=== PATIENT | female | born 1990 | race Native Hawaiian/Other Pacific Islander ===

== ENCOUNTER 2019-10-28 18:45 | Outpatient (CLI) | payer MEDICAID ==
[2019-10-28 19:24] VITALS: BP 116/65
[2019-10-28] MEDS ORDERED: LACTATED RINGERS 1,000 ML IV ONE (19:34)
[2019-10-28 20:08] LABS: Amorphous Crystals,Urine Few; Bilirubin,Urine NEG (Negative); Blood,Urine NEG (Negative); Color,Urine Yellow (Yellow); Mucus,Urine 1+ /HPF; Protein,Urine <15 mg/dL mg/dL (Negative); Urobilinogen,Urine < 2.0 mg/dL (<2.0)
== END 2019-10-28 20:55 | disposition home or self-care (01) ==
LOC: TRG 18:45 → APU 18:46 → TRG 20:55
PROVIDERS: ATTEND Obstetrics & Gynecology
DX: O62.9 Abnormality of forces of labor, unspecified (principal); O24.813 Other pre-existing diabetes mellitus in pregnancy, third trimester; Z3A.33 33 weeks gestation of pregnancy
CPT/HCPCS: 59025; 81001; 96360; J7120

== ENCOUNTER 2019-12-10 21:58 | Observation (INO) | payer MEDICAID ==
[2019-12-11 01:11] LABS: Basophils # (Auto) 0.1 K/mm3 (0.0-0.1); Basophils % (Auto) 0.8 % (0.0-1.8); Eosinophils # (Auto) 0.1 K/mm3 (0.0-0.4); Eosinophils % (Auto) 1.3 % (0.0-4.3); Hematocrit 31.9 % (30.3-42.9); Hemoglobin 10.4 gm/dl (10.1-14.3); Lymphocytes % (Auto) 23.5 % (13.4-35.0); Mean Corpuscular HGB Conc 33 % (30-34); Mean Corpuscular Volume 76 fl (79-97); Monocytes # (Auto) 0.6 K/mm3 (0.0-0.8); Monocytes % (Auto) 6.7 % (0.0-7.3); Platelet Count 334 K/mm3 (140-440); Red Blood Count 4.19 M/mm3 (3.65-5.03); Red Cell Distribution Width 17.1 % (13.2-15.2)
[2019-12-11] MEDS: LACTATED RINGERS 1,000 ML IV SCH ×4 (03:32→23:38)
[2019-12-11] MEDS ORDERED: BUTORPHANOL 2 MG/1 ML INJ IV PRN (09:03)
[2019-12-11] MEDS ORDERED: fentaNYL 100 MCG/2 ML INJ IV PRN (09:03)
[2019-12-11] MEDS ORDERED: AMPICILLIN/NS 2 GM/100 ML 2 GM/100 ML BAG IV ONE ×3 (09:03→19:22)
[2019-12-11] MEDS ORDERED: DINOPROSTONE 10 MG VAG SUPP VG ONE (09:30)
--- NOTE | 2019-12-11 13:26 | History and Physical Report ---
History of Present Illness Date of examination: 12/11/19 Date of admission: 12/10/19 21:58 Chief complaint: Here for induction of labor. History of present illness: 29 year old came in last night for IOL due to GDM and obesity. Assumed care of patient at 10:30 AM this morning. Patient received care at [facility]-MEDICAL OFFICE REPRESENTATIVE and records are noemi ilable. LMP 03/04/19. EDC 12/09/2019 (based on LMP and confirmed by 12 week US). significant for the following: anemia (supplemented with iron), GBS positive, gestational diabetes (diet controlled until October, then started on NPH 10u at HS), history of macrosomia with her first baby (10 lb.), UTI (E.Coli, treated). labs are as follows: O+, antibody screen negative, rubella immune, HIV negative, RPR nonreactive, hepatitis B surface antigen negative, hemoglobin electrophoresis AA, gonorrhea negative, chlamydia negative, trichomonas negative, AFP negative, 1 hour sugar test 183 (3 hour OGTT: 76, 192, 175, 90), GBS positive. Past History Past Medical History: other (obesity, anemia) Past Surgical History: no surgical history MEDICAL OFFICE REPRESENTATIVE History: denies: chlamydia, gonorrhea, hepatitis B, hepatitis C, herpes, HIV, syphilis, trichomonas Family/Genetic History: diabetes Social history: lives with family, full code. denies: smoking, alcohol abuse, prescription drug abuse, IV drug use - Obstetrical History Expected Date of Delivery: 12/09/19 Actual Gestation: 40 Week(s) 2 Day(s) : 3 Para: 2 Hx # Term Pregnancies: 2 Number of Pregnancies: 0 Spontaneous Abortions: 0 Induced : 0 Number of Living Children: 2 Medications and Allergies Allergies Allergy/AdvReac Type Severity Reaction Status Date / Time No Known Allergies Allergy Unverified 10/28/19 19:34 Home Medications Medication Instructions Recorded Confirmed Last Taken Type Insulin NPH, Human [NovoLIN N] 10 unit SUB-Q HS 12/11/19 12/11/19 12/09/19 History Vitamin 1 tab PO DAILY 12/11/19 12/11/19 12/09/19 History Active Meds: Active Medications Butorphanol Tartrate (Stadol) 2 mg IV Q2H PRN PRN Reason: Labor Pain Fentanyl (Sublimaze) 100 mcg IV Q2H PRN PRN Reason: Labor Pain Lactated Ringer's (Lactated Ringers) 1,000 mls @ 125 mls/hr IV DIRECT MELANI Last Admin: 12/11/19 07:41 Dose: 125 mls/hr Documented by: Ampicillin Sodium (Ampicillin/Ns 1 Gm/50 Ml) 1 gm in 50 mls @ 100 mls/hr IV Q4HR MELANI; Protocol Review of Systems All systems: negative (occasional contraction) - Vital Signs Vital signs: Vital Signs Temp Pulse Resp BP 98.5 F 73 16 117/74 12/10/19 22:53 12/10/19 22:53 12/10/19 22:53 12/10/19 22:53 Temp Pulse Resp BP Pulse Ox 98.8 F 69 18 126/66 99 12/11/19 10:01 12/11/19 13:18 12/11/19 10:01 12/11/19 11:01 12/11/19 13:18 - Physical Exam Abdomen: Positive: normal appearance, soft. Negative: distention, tenderness, guarding, rigidity Genitourinary (Female): Positive: normal external genitalia, normal perenium. Negative: perineal/vulvar lesions (no lesions noted on careful exam with bright light) Vagina: Positive: normal moisture Uterus: Positive: enlarged. Negative: tender Anus/Rectum: Positive: normal perianal skin Extremities: Positive: normal. Negative: tenderness, edema - Obstetrical FHR: category 1 Uterine Contraction Monitor Mode: External Cervical Dilatation: 0 Cervical Effacement Percentage: 10 station: OOP (cephalic presentation confirmed by bedside ultrasound) Uterine Contraction Pattern: Absent Results Result Diagrams: 12/10/19 23:30 12/11/19 01:00 Abnormal lab results 12/10/19 12/11/19 Range/Units 23:30 12:36 MCV 76 L (79-97) fl MCH 25 L (28-32) pg RDW 17.1 H (13.2-15.2) % POC Glucose 64 L (70-105) All other labs normal. Assessment and Plan A: at 40 weeks, 2 days gestation. Gestational diabetes. Obesity. GBS positive. P: Cervidil cervical ripening, followed by induction of labor. Continuous EFM. GBS prophylaxis when in labor. Blood sugar checks every 4 hours. Discussed with patient cervidil cervical ripening and induction of labor. Patient consented to cervidil cervical ripening and induction of labor. Consulted with re: GDM. Will monitor blood sugars every 4 hours.
[2019-12-11] MEDS ORDERED: AMPICILLIN/NS 1 GM/50 ML 1 GM/50 ML BAG IV SCH (14:00)
[2019-12-12 00:03] VITALS: BP 121/67
--- NOTE | 2019-12-12 01:44 | Ultrasound Report ---
ULTRASOUND OBSTETRIC LIMITED ULTRASOUND BIOPHYSICAL PROFILE INDICATION / CLINICAL INFORMATION: DION. FWB. Clinical Gestational Age (GA): 40 weeks 3 days COMPARISON: None available. FINDINGS: BREATHING MOVEMENT = 2 GROSS BODY MOVEMENT = 2 TONE = 2 QUALITATIVE AMNIOTIC FLUID VOLUME = 2 TOTAL BIOPHYSICAL SCORE = 8/8 HEART RATE (beats per minute): 131 AMNIOTIC FLUID INDEX (cm) = 16.3 (normal = 7-24 cm) PRESENTATION: Cephalic. ADDITIONAL FINDINGS: None. IMPRESSION: Biophysical Score = 8/8 DION 16.3 cm. Signer Name: Jr Ramires MD Signed: 12/12/2019 1:39 AM Workstation Name: [id number]
--- NOTE | 2019-12-12 03:49 | Event Note ---
Date: 12/12/19 Cervidil was removed at 22:45. Cervical exam unchanged. Patient requests to go home. Category 1 heart rate tracing. BPP 8/8. Normal DION. Mild irregular contractions which patient states she does not feel. No leaking of fluid. No vaginal bleeding. Patient reports active movement. Consulted with Dr. Barrientos re: this patient. Dr. Barrientos states it is OK to send patient home and bring her back for induction of labor in several days. Advised patient she must continue to count movements daily at home and she must continue her GDM regimen at home. Warning signs and signs of labor discussed with patient in detail. Advised patient to return here to L&D on Saturday12/14/2019 for IOL. Patient's nurse and charge nurse notified.
--- NOTE | 2019-12-12 03:54 | Discharge Summary ---
Providers - Providers Date of Admission: 12/10/19 21:58 Date of discharge: 12/12/19 Attending physician: MALATHI LIM MD Primary care physician: MALATHI LIM MD Hospitalization Reason for admission: induction of labor Delivery: other (Undelivered) Pertinent studies: Labs, ultrasound. Hospital course: Stable hospital course. Condition at discharge: Good Disposition: DC-01 TO HOME OR SELFCARE - Discharge Diagnoses (1) Term Status: Acute (2) Obesity Status: Acute (3) Gestational diabetes Status: Acute Plan - Provider Discharge Summary Diet: other (ADA diet) Instructions: other (Count movements every day at home. Continue with your home regimen to manage your gestational diabetes.) Additional instructions: Return to [facility] Delivery on Saturday12/14/2019 at 4:00 PM for induction of labor. - Follow up plan
== END 2019-12-12 04:15 | disposition home or self-care (01) ==
LOC: LD 21:58 → INTOOBSV 21:58
PROVIDERS: ADMIT Obstetrics & Gynecology; ATTEND Obstetrics & Gynecology
DX: O48.0 Post-term pregnancy (principal); O24.410 Gestational diabetes mellitus in pregnancy, diet controlled; O99.213 Obesity complicating pregnancy, third trimester; E66.9 Obesity, unspecified; O99.013 Anemia complicating pregnancy, third trimester; D64.9 Anemia, unspecified; O98.813 Other maternal infectious and parasitic diseases complicating pregnancy, third trimester; B95.1 Streptococcus, group B, as the cause of diseases classified elsewhere; Z87.59 Personal history of other complications of pregnancy, childbirth and the puerperium; Z87.440 Personal history of urinary (tract) infections; Z68.41 Body mass index [BMI] 40.0-44.9, adult
CPT/HCPCS: 36415; 76815; 76819; 82947; 82962; 85025; 86592; 86850; 86900; 86901; 96365; G0378; G0379; J0290; J7120

== ENCOUNTER 2021-11-20 19:43 | Observation (INO) | payer MEDICAID ==
[2021-11-20 20:56] LABS: Hematocrit 25.6 % (30.3-42.9); Hemoglobin 7.4 gm/dl (10.1-14.3); Mean Corpuscular Volume 58 fl (79-97); Red Blood Count 4.44 M/mm3 (3.65-5.03)
[2021-11-20 20:57] LABS: Basophils % (Auto) 0.5 % (0.0-1.8); Eosinophils # (Auto) 0.3 K/mm3 (0.0-0.4); Eosinophils % (Auto) 3.8 % (0.0-4.3); Lymphocytes # (Auto) 3.2 K/mm3 (1.2-5.4); Lymphocytes % (Auto) 38.9 % (13.4-35.0); Mean Corpuscular HGB Conc 29 % (30-34); Monocytes # (Auto) 0.4 K/mm3 (0.0-0.8); Monocytes % (Auto) 5.1 % (0.0-7.3); Platelet Count 431 K/mm3 (140-440); Red Cell Distribution Width 19.6 % (13.2-15.2)
[2021-11-20 21:00] LABS: INR 0.96 (0.87-1.13)
[2021-11-20 21:01] LABS: Partial Thromboplastin Time 30.8 Sec. (24.2-36.6)
[2021-11-20 21:06] LABS: Creatine Kinase MB < 1.0 ng/mL (0.0-4.0)
--- NOTE | 2021-11-20 21:08 | Cat Scan Report ---
CT head/brain wo con INDICATION / CLINICAL INFORMATION: 31 years Female; Stroke symptoms. TECHNIQUE: Routine CT head without contrast. All CT scans at this location are performed using CT dos e reduction for ALARA by means of automated exposure control. COMPARISON: None. FINDINGS: BRAIN / INTRACRANIAL CONTENTS: The brain parenchyma appears to demonstrate appropriate attenuation. T he ventricular system is within upper limits of normal in size configuration. There is no clear CT ev idence of acute intracranial hemorrhage or significant mass effect. ORBITS: No significant abnormality of visualized orbits. SINUSES / MASTOIDS: No significant abnormality in the visualized paranasal sinuses or mastoid air emmanuel ls. CRANIOCERVICAL JUNCTION: No significant abnormality. ADDITIONAL FINDINGS: None. IMPRESSION: 1. There is no clear CT evidence of acute intercranial process. The study was specified as code stroke and called emergently to Dr. Bryan BENITO at 8:01 PM Central stand raymundo time. Signer Name: Wagner Ramirez MD Signed: 11/20/2021 9:04 PM Workstation Name: [id number]
[2021-11-20 21:09] LABS: Thrombin Time 15.7 Sec. (15.1-19.6)
--- NOTE | 2021-11-20 21:53 | Emergency Department Report ---
Blank Doc - Documentation Documentation: [facility] Consult Note # Demographics Consult Type: Acute Stroke Level 2 (4.5-24 hrs) Patient Location: Emergency Room First Name: Giovana Last Name: Cristian Date of : 1990 Age: 31 Gender: Female Facility: [facility] Time of Initial Page (Eastern Time): 11/20/2021, 20:57 Time of Return Call (Eastern Time): 11/20/2021, 20:58 # HPI History: 31 year old female who had headache last . Today she had facial droop on the left side. Headache is still there. No other complaints. # Scores Level of Consciousness 1a: [0] = Alert; keenly responsive LOC Questions 1b: [0] = Answers both questions correctly LOC Commands 1c: [0] = Performs both tasks correctly Best Gaze 2: [0] = Normal Visual 3: [0] = No visual loss Facial Palsy 4: [1] = Minor paralysis Motor Arm Left 5a: [0] = No drift Motor Arm Right 5b: [0] = No drift Motor Leg Left 6a: [0] = No drift Motor Leg Right 6b: [0] = No drift Limb Ataxia 7: [0] = Absent Sensory 8: [1] = Ffas-tf-eaphihwu sensory loss Best Language 9: [0] = No aphasia Dysarthria 10: [0] = Normal Extinction and Inattention 11: [0] = No abnormality NIHSS Total: 2 # PMH-FH-SH Past Medical History: denies Past Surgical History: denies Social History: non-smoker non-drinker no drugs Medications: denies # Data Head CT: no bleed per radiologist read # Assessment Impression: 31 year old with hx since presents with facial droop today. No other symptoms. Mild sensory loss on left as well. Denies any other complaints. No sickness recently. Recommend CTA head and neck and MRI Brain. Differential complex migraine but cannot rule out stroke. Also patient with hgb 7.4 onlabs, recommend work up as per ED. # Plan Thrombolytic/Intervention: Possible IA candidate Thrombolytic Exclusion: > 4.5 hours Possible IA Candidate: CTA pending Target Blood Pressure: SBP < 140 SBP > 110 DBP < 105 Labs: CBC comprehensive metabolic panel ESR hemoglobin A1c lipid panel troponin TSH urine drug screen ua Imaging: (urgency: STAT): CT Angiogram Head and CT Angiogram Neck Imaging: (urgency: routine): MRI Brain without contrast Diagnostic Test: echo with bubble study Therapy/Evaluation: PT/OT evaluation speech/swallow consultation Medication: aspirin 81 mg daily start statin with goal of LDL < 70 Other: If patient has any neurological deterioration please call me back immediately telemetry monitoring would not pursue stroke work-up if MRI is negative I have discussed my recommendations with the referring provider Disposition: admit
--- NOTE | 2021-11-20 22:33 | Cat Scan Report ---
CT angio neck INDICATION / CLINICAL INFORMATION: 31 years Female; Severe symptoms. TECHNIQUE: Thin cut axial images obtained through the head during IV bolus contrast administration. S agittal, coronal, and 3 plane MIP reconstructions performed by the technologist. NASCET type criteria used evaluate stenoses. All CT scans at this location are performed using CT dose reduction for ALAR A by means of automated exposure control. COMPARISON: None available. FINDINGS: CAROTID ARTERIES: The motion as well as the beam hardening from the patient's body habitus degrade th e image quality. The irregularity involving the proximal cervical ICAs appear to be related to the de gree of motion. Otherwise, there is no clear CT evidence of significant stenosis involving the collector of internal revenue al carotid arteries by NASCET criteria. VERTEBRAL ARTERIES: The vertebral arteries also appear to demonstrate appropriate caliber without sig nificant focal stenosis. ARCH: There is no significant focal narrowing involving origins of the arch vessels. ADDITIONAL FINDINGS: Remainder of the surrounding soft tissues are grossly normal. IMPRESSION: The motion and beam hardening degrade the image quality as described. However, there is no clear CT e vidence of significant stenosis involving the cervical carotid arteries by NASCET criteria. Signer Name: Wagner Ramirez MD Signed: 11/20/2021 10:29 PM Workstation Name: [id number]
--- NOTE | 2021-11-20 22:46 | Cat Scan Report ---
CT angio head INDICATION / CLINICAL INFORMATION: 31 years Female; Severe symptoms. TECHNIQUE: Thin cut axial images obtained through the head during IV bolus contrast administration. S agittal, coronal, and 3 plane MIP reconstructions performed by the technologist. NASCET type criteria used evaluate stenoses. Automated exposure control utilized for radiation reduction purposes. COMPARISON: None available. FINDINGS: INTERNAL CAROTID ARTERIES: The motion and beam hardening degrade the image quality. However, there is no clear evidence of significant focal stenosis involving intracranial ICAs by NASCET criteria. VERTEBROBASILAR SYSTEM: The vertebrobasilar system also appears to demonstrate appropriate caliber wi thout significant focal narrowing. CEREBRAL ARTERIES: There is no clear CT evidence of significant stenosis or large vessel occlusion in volving proximal cerebral arteries or visualized adjacent segments. There is notable enhancement along the lateral margins of the frontal lobes bilaterally, greater on t he left measure approximately 1.2 cm AP by 0.7 cm transverse by 1.1 cm sagittally and greatest dimens ions at. There are notable superficial draining cortical veins defect extending anteriorly within thi s region. Given the confluence of vascular enhancement within this region and extra-axial location fi ndings at may reflect arteriovenous fistula which is of unclear clinical significance given the histo ry of unspecified "stroke symptoms" and correlation would be needed. Dynamic imaging may be provided by catheter angiography which would assess for early venous filling within this region. There is no c lear evidence of adjacent hemorrhage on the earlier noncontrast emergent code stroke CT head. ANEURYSM: None identified. ADDITIONAL FINDINGS: Remainder of the surrounding soft tissues are grossly normal. IMPRESSION: The motion degrades image quality. However, there is no clear CTA evidence of large vessel occlusion amenable to endovascular treatment. There is a focus of enhancing vessels along the lateral left frontal region as detailed above above r elation would be needed given the emergent presentation and history of unspecified "stroke symptoms". There is no clear evidence of associated adjacent hemorrhage within this region on the earlier emerg ent noncontrast code stroke CT head at 8:46 PM. The CTA head was specified as stat and dictated emergently at 9:39 PM Central standard time. Signer Name: Wagner Ramirez MD Signed: 11/20/2021 10:42 PM Workstation Name: [id number]
--- NOTE | 2021-11-20 23:39 | Emergency Department Report ---
ED Neuro Deficit HPI - General Chief Complaint: Neuro Symptoms/Deficit Stated Complaint: LFET SIDE PAIN OF FACE Time Seen by Provider: 11/20/21 20:45 Source: EMS Mode of arrival: Ambulatory Limitations: No Limitations - History of Present Illness Initial Comments: Patient is a 31-year-old female presenting to ED with complaint of left-sided facial droop that occurred while at work today. She reports associated headache over her left temporal with left ocular pain. She denies any other focal symptoms. No past history of CVA. No history of migraines. - Related Data Home Medications: Home Medications Medication Instructions Recorded Confirmed Last Taken Vitamin 1 tab PO DAILY 12/11/19 12/15/19 12/14/19 09:00 1 Allergies/Adverse Reactions: Allergies Allergy/AdvReac Type Severity Reaction Status Date / Time No Known Allergies Allergy Unverified 10/28/19 19:34 ED Review of Systems ROS: Stated complaint: LFET SIDE PAIN OF FACE Other details as noted in HPI Comment: All other systems reviewed and negative Constitutional: denies: chills, fever Respiratory: denies: cough, shortness of breath, wheezing Cardiovascular: denies: chest pain, palpitations Gastrointestinal: denies: abdominal pain, nausea, diarrhea Musculoskeletal: denies: back pain, joint swelling, arthralgia Skin: denies: rash, lesions Neurological: headache, weakness Psychiatric: denies: anxiety, depression ED Past Medical Hx - Past Medical History Hx Hypertension: No Hx Congestive Heart Failure: No Hx Diabetes: Yes (THIS ) Hx Deep Vein Thrombosis: No Hx Renal Disease: No Hx Sickle Cell Disease: No Hx Seizures: No Hx Asthma: No Hx COPD: No Hx HIV: No - Social History Smoking Status: Never Smoker Substance Use Type: None - Medications Home Medications: Home Medications Medication Instructions Recorded Confirmed Last Taken Type Vitamin 1 tab PO DAILY 12/11/19 12/15/19 12/14/19 09:00 History 1 ED Neuro Physical Exam - General Limitations: No Limitations General appearance: alert, in no apparent distress Suspected Stroke: Yes - Head Head exam: Present: atraumatic, normocephalic - Neck Neck exam: Present: normal inspection - Respiratory Respiratory exam: Present: normal lung sounds bilaterally. Absent: respiratory distress - Cardiovascular Cardiovascular Exam: Present: regular rate, normal rhythm. Absent: systolic murmur, diastolic murmur, rubs, gallop - GI/Abdominal GI/Abdominal exam: Present: soft. Absent: distended, tenderness - Rectal Rectal exam: Present: deferred - Neurological Exam Neurological exam: Present: alert, oriented X3, other (Left facial droop) - NIHSS Assessment Interval: Baseline 1a. Level of Consciousness: alert/keenly responsive 1b. LOC Questions: answers both correctly 1c. LOC Commands: performs tasks correctly 2. Best Gaze: normal 3. Visual: no visual loss 4. Facial Palsy: partial paralysis 5b. Motor Arm Right: no drift 5a. Motor Arm Left: no drift 6a. Motor Leg Left: no drift 6b. Motor Leg Right: no drift 7. Limb Ataxia: absent 8. Sensory: normal 9. Best Language: no aphasia 10. Dysarthria: normal 11. Extinction/Inattention: no abnormality Total Score: 2 Stroke Severity: Minor Stroke - Psychiatric Psychiatric exam: Present: normal affect, normal mood - Skin Skin exam: Present: warm, dry, intact, normal color ED Course Vital Signs 11/20/21 11/20/21 11/20/21 20:34 21:33 21:34 Temperature 98.1 F 97.9 F Pulse Rate 85 75 Respiratory 16 12 12 Rate Blood Pressure 132/79 Blood Pressure 99/59 [Left] O2 Sat by Pulse 100 100 99 Oximetry 11/20/21 21:36 Temperature 97.9 F Pulse Rate 75 Respiratory 12 Rate Blood Pressure 99/59 Blood Pressure [Left] O2 Sat by Pulse 99 Oximetry - Lab Data Result diagrams: 11/20/21 20:48 Lab Results 11/20/21 11/20/21 11/20/21 Range/Units 20:48 20:48 20:48 WBC 8.1 (4.5-11.0) K/mm3 RBC 4.44 (3.65-5.03) M/mm3 Hgb 7.4 L (10.1-14.3) gm/dl Hct 25.6 L (30.3-42.9) % MCV 58 L (79-97) fl MCH 17 L (28-32) pg MCHC 29 L (30-34) % RDW 19.6 H (13.2-15.2) % Plt Count 431 (140-440) K/mm3 Lymph % (Auto) 38.9 H (13.4-35.0) % [place] % (Auto) 5.1 (0.0-7.3) % Eos % (Auto) 3.8 (0.0-4.3) % Baso % (Auto) 0.5 (0.0-1.8) % Lymph # (Auto) 3.2 (1.2-5.4) K/mm3 [place] # (Auto) 0.4 (0.0-0.8) K/mm3 Eos # (Auto) 0.3 (0.0-0.4) K/mm3 Baso # (Auto) 0.0 (0.0-0.1) K/mm3 Seg Neutrophils % 51.7 (40.0-70.0) % Seg Neutrophils # 4.2 (1.8-7.7) K/mm3 PT 13.8 (12.2-14.9) Sec. INR 0.96 (0.87-1.13) APTT 30.8 (24.2-36.6) Sec. Thrombin Time 15.7 (15.1-19.6) Sec. POC Glucose (70-105) mg/dL Total Creatine Kinase (30-135) units/L CK-MB (CK-2) (0.0-4.0) ng/mL CK-MB (CK-2) Rel Index (0-4) Troponin T (0.00-0.029) ng/mL HCG, Quant < 2 (0-4) mIU/mL 11/20/21 11/20/21 Range/Units 20:51 21:44 WBC (4.5-11.0) K/mm3 RBC (3.65-5.03) M/mm3 Hgb (10.1-14.3) gm/dl Hct (30.3-42.9) % MCV (79-97) fl MCH (28-32) pg MCHC (30-34) % RDW (13.2-15.2) % Plt Count (140-440) K/mm3 Lymph % (Auto) (13.4-35.0) % Radford % (Auto) (0.0-7.3) % Eos % (Auto) (0.0-4.3) % Baso % (Auto) (0.0-1.8) % Lymph # (Auto) (1.2-5.4) K/mm3 [place]ford # (Auto) (0.0-0.8) K/mm3 Eos # (Auto) (0.0-0.4) K/mm3 Baso # (Auto) (0.0-0.1) K/mm3 Seg Neutrophils % (40.0-70.0) % Seg Neutrophils # (1.8-7.7) K/mm3 PT (12.2-14.9) Sec. INR (0.87-1.13) APTT (24.2-36.6) Sec. Thrombin Time (15.1-19.6) Sec. POC Glucose 109 H (70-105) mg/dL Total Creatine Kinase 72 (30-135) units/L CK-MB (CK-2) < 1.0 (0.0-4.0) ng/mL CK-MB (CK-2) Rel Index 1.3 (0-4) Troponin T < 0.010 (0.00-0.029) ng/mL HCG, Quant (0-4) mIU/mL - Medical Decision Making Code stroke paged from triage. CT head unremarkable. NIH scale 2. CTA head and neck ordered at request of teleneurology without signs of acute occlusion. Will admit to hospitalist for further work-up. Critical care attestation.: If time is entered above; I have spent that time in minutes in the direct care of this critically ill patient, excluding procedure time. ED Disposition Clinical Impression: Symptoms of cerebrovascular accident (CVA), Facial droop Disposition: ADMITTED INPATIENT Is pt being admited?: Yes Condition: Stable Referrals: PRIMARY CARE, [Primary Care Provider] - 3-5 Days
[2021-11-20] MEDS ORDERED: ASPIRIN 325 MG TAB PO ONE (23:40)
[2021-11-21 00:39] LABS: Blood Urea Nitrogen 8 mg/dL (7-17); Calcium 8.6 mg/dL (8.4-10.2); Hemolysis Index 2
[2021-11-21 00:42] LABS: BUN/Creatinine Ratio 27
[2021-11-21] MEDS ORDERED: MORPHINE 2 MG/1 ML INJ IV PRN (00:58)
[2021-11-21] MEDS ORDERED: ALBUTEROL 2.5 MG/3 ML NEBU IH PRN (00:58)
[2021-11-21] MEDS ORDERED: MORPHINE 4 MG/1 ML INJ IV PRN (00:58)
[2021-11-21] MEDS ORDERED: ONDANSETRON 4 MG/2 ML INJ IV PRN (00:58)
--- NOTE | 2021-11-21 01:11 | History and Physical Report ---
History of Present Illness Date of examination: 11/21/21 Date of admission: 11/11/21 Chief complaint: Left-sided facial droop History of present illness: 31-year-old female with history of headache since last was brought to the emergency room because of left-sided facial droop that occurred while at work today. She reports associated headache over her left temporal with left ocular pain. She denies any other focal symptoms. No past history of CVA. No history of migraines. In the emergency room.CT head unremarkable. NIH scale 2. CTA head and neck ordered at request of teleneurology without signs of acute occlusion. We will admit the patient and put the patient on CVA pathway Past History Past Medical History: diabetes Past Surgical History: No surgical history Social history: no significant social history Family history: no significant family history Medications and Allergies Allergies Allergy/AdvReac Type Severity Reaction Status Date / Time No Known Allergies Allergy Unverified 10/28/19 19:34 Home Medications Medication Instructions Recorded Confirmed Last Taken Type Vitamin 1 tab PO DAILY 12/11/19 12/15/19 12/14/19 09:00 History 1 Active Meds: Active Medications Acetaminophen (Acetaminophen 325 Mg Tab) 650 mg PO Q4H PRN PRN Reason: Pain MILD(1-3)/Fever >100.5/CHARLES Albuterol (Albuterol 2.5 Mg/3 Ml Nebu) 2.5 mg IH Q3HRT PRN PRN Reason: Shortness Of Breath Albuterol/Ipratropium (Ipratropium/Albuterol Sulfate 3 Ml Ampul.Neb) 1 ampul IH Q6HRT MELANI Atorvastatin Calcium (Atorvastatin 40 Mg Tab) 40 mg PO QHS MELANI Famotidine (Famotidine 20 Mg/2 Ml Inj) 20 mg IV BID MELANI Heparin Sodium (Porcine) (Heparin 5,000 Unit/1 Ml Vial) 5,000 unit SUB-Q Q12HR MELANI Dextrose/Sodium Chloride (D5ns) 1,000 mls @ 100 mls/hr IV DIRECT MELANI Labetalol HCl (Labetalol 20 Mg/4 Ml Inj) 10 mg IV Q5MIN PRN PRN Reason: to maintain SBP < 180 Morphine Sulfate (Morphine 2 Mg/1 Ml Inj) 2 mg IV Q4H PRN PRN Reason: Pain, Moderate (4-6) Morphine Sulfate (Morphine 4 Mg/1 Ml Inj) 4 mg IV Q4H PRN PRN Reason: Pain , Severe (7-10) Ondansetron HCl (Ondansetron 4 Mg/2 Ml Inj) 4 mg IV Q8H PRN PRN Reason: Nausea And Vomiting Sodium Chloride (Sodium Chloride 0.9% 10 Ml Flush Syringe) 10 ml IV BID MELANI Sodium Chloride (Sodium Chloride 0.9% 10 Ml Flush Syringe) 10 ml IV PRN PRN PRN Reason: LINE FLUSH Sodium Chloride (Sodium Chloride 0.9% 10 Ml Flush Syringe) 10 ml INJ PRN PRN PRN Reason: LINE FLUSH Review of Systems Constitutional: weakness, other (Headache, left facial droop) Exam - Constitutional Vitals: Temp Pulse Resp BP Pulse Ox 97.9 F 75 12 99/59 99 11/20/21 21:36 11/20/21 21:36 11/20/21 21:36 11/20/21 21:36 11/20/21 21:36 General appearance: Present: no acute distress, well-nourished - EENT Eyes: Present: PERRL ENT: hearing intact, clear oral mucosa - Neck Neck: Present: supple, normal ROM - Respiratory Respiratory effort: normal Respiratory: bilateral: CTA - Cardiovascular Heart Sounds: Present: S1 & S2. Absent: rub, click - Extremities Extremities: pulses symmetrical, No edema Peripheral Pulses: within normal limits - Abdominal General gastrointestinal: Present: soft, non-tender, non-distended, normal bowel sounds Female genitourinary: Present: normal - Integumentary Integumentary: Present: clear, warm, dry - Musculoskeletal Musculoskeletal: gait normal, strength equal bilaterally - Psychiatric Psychiatric: appropriate mood/affect, intact judgment & insight - Neurologic Neurologic: CNII-XII intact, moves all extremities, other (Headache, left facial droop) HEART Score - HEART Score Troponin: Troponin T < 0.010 ng/mL (0.00-0.029) 11/20/21 20:51 Results - Labs CBC & Chem 7: 11/20/21 20:48 11/20/21 23:49 Labs: Laboratory Last Values WBC 8.1 K/mm3 (4.5-11.0) 11/20/21 20:48 RBC 4.44 M/mm3 (3.65-5.03) 11/20/21 20:48 Hgb 7.4 gm/dl (10.1-14.3) L 11/20/21 20:48 Hct 25.6 % (30.3-42.9) L 11/20/21 20:48 MCV 58 fl (79-97) L 11/20/21 20:48 MCH 17 pg (28-32) L 11/20/21 20:48 MCHC 29 % (30-34) L 11/20/21 20:48 RDW 19.6 % (13.2-15.2) H 11/20/21 20:48 Plt Count 431 K/mm3 (140-440) 11/20/21 20:48 Lymph % (Auto) 38.9 % (13.4-35.0) H 11/20/21 20:48 [place] % (Auto) 5.1 % (0.0-7.3) 11/20/21 20:48 Eos % (Auto) 3.8 % (0.0-4.3) 11/20/21 20:48 Baso % (Auto) 0.5 % (0.0-1.8) 11/20/21 20:48 Lymph # (Auto) 3.2 K/mm3 (1.2-5.4) 11/20/21 20:48 [place] # (Auto) 0.4 K/mm3 (0.0-0.8) 11/20/21 20:48 Eos # (Auto) 0.3 K/mm3 (0.0-0.4) 11/20/21 20:48 Baso # (Auto) 0.0 K/mm3 (0.0-0.1) 11/20/21 20:48 Seg Neutrophils % 51.7 % (40.0-70.0) 11/20/21 20:48 Seg Neutrophils # 4.2 K/mm3 (1.8-7.7) 11/20/21 20:48 PT 13.8 Sec. (12.2-14.9) 11/20/21 20:48 INR 0.96 (0.87-1.13) 11/20/21 20:48 APTT 30.8 Sec. (24.2-36.6) 11/20/21 20:48 Thrombin Time 15.7 Sec. (15.1-19.6) 11/20/21 20:48 Sodium 138 mmol/L (137-145) 11/20/21 23:49 Potassium 3.5 mmol/L (3.6-5.0) L 11/20/21 23:49 Chloride 103.0 mmol/L (98-107) 11/20/21 23:49 Carbon Dioxide 22 mmol/L (22-30) 11/20/21 23:49 Anion Gap 17 mmol/L 11/20/21 23:49 BUN 8 mg/dL (7-17) 11/20/21 23:49 Creatinine 0.3 mg/dL (0.6-1.2) L 11/20/21 23:49 Estimated GFR > 60 ml/min 11/20/21 23:49 BUN/Creatinine Ratio 27 % 11/20/21 23:49 Glucose 97 mg/dL (65-100) 11/20/21 23:49 POC Glucose 109 mg/dL (70-105) H 11/20/21 21:44 Calcium 8.6 mg/dL (8.4-10.2) 11/20/21 23:49 Total Creatine Kinase 72 units/L (30-135) 11/20/21 20:51 CK-MB (CK-2) < 1.0 ng/mL (0.0-4.0) 11/20/21 20:51 CK-MB (CK-2) Rel Index 1.3 (0-4) 11/20/21 20:51 Troponin T < 0.010 ng/mL (0.00-0.029) 11/20/21 20:51 HCG, Quant < 2 mIU/mL (0-4) 11/20/21 20:48 - Imaging and Cardiology CT Scan - head: report reviewed Assessment and Plan VTE prophylaxis?: Chemical Plan of care discussed with patient/family: Yes - Patient Problems (1) CVA (cerebral vascular accident) Current Visit: Yes Status: Acute Plan to address problem: Admit the patient to the medical telemetry. NPO. Normal saline at the rate of 100 cc/h. Aspirin 81 mg p.o. daily. Lipitor 40 mg p.o. daily. PT OT speech evaluation. Neurology evaluation. MRI of the brain and MRA of the brain and neck with and without contrast. Echocardiogram (2) Facial droop Current Visit: Yes Status: Acute Plan to address problem: Aspirin 81 mg p.o. daily. Lipitor 40 mg p.o. daily. PT OT speech evaluation. Neurology evaluation. MRI of the brain and MRA of the brain and neck with and without contrast. Echocardiogram (3) Obesity Current Visit: No Status: Acute Plan to address problem: We counseled the patient regarding weight reduction. Outpatient follow-up with bariatric surgery. (4) DVT prophylaxis Current Visit: Yes Status: Acute Plan to address problem: Heparin 5000 units subcu every 12 hours for DVT prophylaxis. Pepcid 20 mg IV every 12 hours for GI prophylaxis. Patient is a full code
[2021-11-21] MEDS: IPRATROPIUM/ALBUTEROL SULFATE 3 ML AMPUL.NEB IH SCH ×2 (03:17→09:05)
[2021-11-21 04:31] LABS: Bilirubin,Urine NEG (Negative); Blood,Urine MOD (Negative); Color,Urine Yellow (Yellow); Protein,Urine <15 mg/dL mg/dL (Negative); Urobilinogen,Urine < 2.0 mg/dL (<2.0)
[2021-11-21 04:38] LABS: Mucus,Urine 3+ /HPF
[2021-11-21 04:40] LABS: Amphetamine Screen,Urine PRESUMPTIVE NEGATIVE; Benzodiazepines Screen,Urine PRESUMPTIVE NEGATIVE; Cannabinoid Screen,Urine PRESUMPTIVE NEGATIVE; Cocaine Screen,Urine PRESUMPTIVE NEGATIVE; Methadone Screen,Urine PRESUMPTIVE NEGATIVE; Opiate Screen,Urine PRESUMPTIVE NEGATIVE
--- NOTE | 2021-11-21 10:07 | Electrocardiograph Report ---
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
[2021-11-21] MEDS: D5W/0.9% NACL 1,000 ML IV SCH (13:35)
[2021-11-21] MEDS: ASPIRIN 81 MG TAB CHEW PO SCH (13:36)
[2021-11-21] MEDS: HEPARIN 5,000 UNIT/1 ML VIAL SUB-Q SCH ×2 (13:36→21:19)
[2021-11-21] MEDS: FAMOTIDINE 20 MG/2 ML INJ IV SCH ×2 (13:36→21:19)
[2021-11-21] MEDS: PRENATAL VIT27-FE FUMARATE-FOLIC ACID VIT TAB PO SCH (13:53)
--- NOTE | 2021-11-21 15:44 | Consultation ---
History of Present Illness Consult date: 11/21/21 Reason for Consult: Headache History of present illness: 31-year-old female with history of headache since last was brought to the emergency room because of left-sided facial droop that occurred while at work today. She reports associated headache over her left temporal with left ocular pain. She denies any other focal symptoms. No past history of CVA. No history of migraines. In the emergency room.CT head unremarkable. NIH scale 2. CTA head and neck ordered at request of teleneurology without signs of acute occlusion. We will admit the patient and put the patient on CVA pathway Some improvement in headaches while in hospital . Past History Past Medical History: diabetes Past Surgical History: No surgical history Social history: no significant social history Family history: no significant family history Medications and Allergies Allergies Allergy/AdvReac Type Severity Reaction Status Date / Time No Known Allergies Allergy Verified 11/21/21 10:41 Home Medications Medication Instructions Recorded Confirmed Last Taken Type No Known Home Medications [No 11/21/21 11/21/21 Unknown History Reported Home Medications] Active Meds: Active Medications Acetaminophen (Acetaminophen 325 Mg Tab) 650 mg PO Q4H PRN PRN Reason: Pain MILD(1-3)/Fever >100.5/CHARLES Albuterol (Albuterol 2.5 Mg/3 Ml Nebu) 2.5 mg IH Q3HRT PRN PRN Reason: Shortness Of Breath Aspirin (Aspirin 81 Mg Tab Chew) 81 mg PO QDAY [facility] Last Admin: 11/21/21 13:36 Dose: 81 mg Atorvastatin Calcium (Atorvastatin 40 Mg Tab) 40 mg PO QHS [facility] Famotidine (Famotidine 20 Mg/2 Ml Inj) 20 mg IV BID [facility] Last Admin: 11/21/21 13:36 Dose: 20 mg Heparin Sodium (Porcine) (Heparin 5,000 Unit/1 Ml Vial) 5,000 unit SUB-Q Q12HR [facility] Last Admin: 11/21/21 13:36 Dose: 5,000 unit Dextrose/Sodium Chloride (D5ns) 1,000 mls @ 100 mls/hr IV DIRECT [facility] Last Admin: 11/21/21 13:35 Dose: 100 mls/hr Labetalol HCl (Labetalol 20 Mg/4 Ml Inj) 10 mg IV Q5MIN PRN PRN Reason: to maintain SBP < 180 Morphine Sulfate (Morphine 2 Mg/1 Ml Inj) 2 mg IV Q4H PRN PRN Reason: Pain, Moderate (4-6) Morphine Sulfate (Morphine 4 Mg/1 Ml Inj) 4 mg IV Q4H PRN PRN Reason: Pain , Severe (7-10) Multivitamins/Iron/Calcium ( [id number] Fumarate-Folic Acid Vit Tab) 1 each PO DAILY [facility] Last Admin: 11/21/21 13:53 Dose: 1 each Ondansetron HCl (Ondansetron 4 Mg/2 Ml Inj) 4 mg IV Q8H PRN PRN Reason: Nausea And Vomiting Sodium Chloride (Sodium Chloride 0.9% 10 Ml Flush Syringe) 10 ml IV BID [facility] Last Admin: 11/21/21 13:48 Dose: 10 ml Sodium Chloride (Sodium Chloride 0.9% 10 Ml Flush Syringe) 10 ml IV PRN PRN PRN Reason: LINE FLUSH Physical Examination - Vital Signs Vital Signs: Vital Signs Temp Pulse Resp BP Pulse Ox 98.1 F 85 16 132/79 100 11/20/21 20:34 11/20/21 20:34 11/20/21 20:34 11/20/21 20:34 11/20/21 20:34 - Physical Exam Narrative exam: The patient is alert , cranial nerves are normal , moves 4 extremity , no neck stiffness . Results - Laboratory Findings CBC and BMP: 11/20/21 20:48 11/20/21 23:49 Abnormal Lab Findings: Abnormal Labs 11/20/21 11/20/21 11/20/21 20:48 21:44 23:49 Hgb 7.4 L Hct 25.6 L MCV 58 L MCH 17 L MCHC 29 L RDW 19.6 H Lymph % (Auto) 38.9 H Potassium 3.5 L Creatinine 0.3 L POC Glucose 109 H Ur Specific [place] Urine WBC (Auto) 11/21/21 04:19 Hgb Hct MCV MCH MCHC RDW Lymph % (Auto) Potassium Creatinine POC Glucose Ur Specific [place] 1.056 H Urine WBC (Auto) 20.0 H Assessment and Plan 1. Clinical Suspicion is more towards - Status Migranous 2. Less Likely CVA - awaits MRI Brain results . 3. CTA reviewed . 4. Currently agree with symptomatic management . 5. If CHARLES persists patient cant go home on PRN Firocet and follow up with Neurology for further medication management . Dr. Barillas
--- NOTE | 2021-11-21 15:44 | Magnetic Resonance Report ---
MR MRA/MRV head wo con INDICATION / CLINICAL INFORMATION: 31 years Female; stroke--left facial drooping. TECHNIQUE: 3-D time of flight. NASCET type criteria used to evaluate stenoses. Some motion artifact suggested. COMPARISON: CTA - 11/20/2021 FINDINGS: Note, the areas of prominent vasculature are seen along the left frontoparietal region, and to lesser degree on the right, on recent CTA are not well visualized on this exam. However, the middle meninge al artery is fairly prominent bilaterally, which may suggest increased flow. Catheter angiography may be of benefit to exclude small pial AVM or dural AV fistula. INTERNAL CAROTID ARTERIES: Focal areas of mild narrowing are seen in the junction of the anterior gen u and communicating portions of both internal carotid arteries-right more prominent than left. These findings are not seen on recent CTA and are felt to be related to flow artifact. There were also areas of focal mild narrowing suggested in the proximal carotid canal portion of of t he left internal carotid artery-this is seen on recent CTA of the head and appears to be related to b juliocesar narrowing. This finding does not appear to be hemodynamically significant. VERTEBROBASILAR SYSTEM: No significant narrowing appreciated. DISTAL BRANCHES: Distal branches of the anterior, middle, and posterior cerebral arteries are fairly symmetric in appearance and number. There is suggestion of subtle areas of focal narrowing in MCA trifurcation branches bilaterally, whic h is not appreciated on prior study. Findings are most likely artifactual. Proximal and mid posterior cerebral arteries are grossly normal in appearance. The distal vessels are not well visualized. ANEURYSM: None identified. IMPRESSION: 1. Prominence of vessels seen on recent CTA peripherally along the calvarium are not appreciated on [facility] current study. Catheter angiography is recommended for further evaluation, as described above. 2. Areas of narrowing as described above. These findings do not appear to be hemodynamically signific ant. Signer Name: Jose Gtz MD, III Signed: 11/21/2021 3:40 PM Workstation Name: [email or web address]
--- NOTE | 2021-11-21 16:47 | Magnetic Resonance Report ---
NONENHANCED MR SCAN OF THE BRAIN: INDICATION / CLINICAL INFORMATION: stroke--left facial drooping. TECHNIQUE: Multiplanar, multisequence MR images of the brain obtained. COMPARISON: CT scan of the head from 07/23/2021 FINDINGS: BRAIN / INTRACRANIAL CONTENTS: No acute ischemia, acute hemorrhage, mass effect, midline shift, or hy drocephalus. No chronic infarct or atrophy. No significant white matter abnormality. CRANIOCERVICAL JUNCTION: Peg shaped cerebellar tonsils extending 2-3 mm below the foramen magnum; wit hin normal limits; cervicomedullary junction normal VASCULAR FLOW-VOIDS: Normal flow signal in the basilar artery and in the carotid artery at the level of carotid siphon Venous system: In the CTA of the head, normal dural venous sinuses Prominent flow signal in some of the cortical veins bifrontally and along the tentorial veins; correl ates with CTA findings; dural venous sinuses have normal flow (CTA) Though CTAs and MRAs are very good involving without arterial pathology, dural venous fistula is are very difficult to exclude, given the findings are prominent cortical veins bifrontally. If symptoms c ontinue and if there is a bruit over the skull, please obtain catheter cerebral angiography looking f or dural arteriovenous malformation. ORBITS: No significant abnormality of visualized orbits. SINUSES / MASTOIDS: No significant abnormality of visualized sinuses and mastoid air cells. ADDITIONAL FINDINGS: None. IMPRESSION: No acute focal parenchymal lesion in the brain graft as seen in the CTA of the head, prominent cortic al draining veins are seen bifrontally. In addition, there are also prominent tentorium remains. Dura l venous sinuses are patent. If symptoms persist and if there is a bruit over the head, please obtain catheter angiography to exclude dural venous malformation. Signer Name: Genesis Valentin MD Signed: 11/21/2021 4:42 PM Workstation Name: [email or web address]
[2021-11-21] MEDS: ACETAMINOPHEN 325 MG TAB PO PRN (21:23)
--- NOTE | 2021-11-21 21:30 | Progress Note ---
Assessment and Plan Assessment and plan: VTE prophylaxis?: Chemical Plan of care discussed with patient/family: Yes - Patient Problems --CVA (cerebral vascular accident) Current Visit: Yes Status: Acute Plan to address problem: Neuro work-up negative Acute CVA ruled out -- Facial droop probably due to migraine headaches neurological symptoms Current Visit: Yes Status: Acute Plan to address problem: Aspirin 81 mg p.o. daily. Neurology evaluated the patient Recommend Fioricet and follow-up with neurology outpatient --Migraine headaches; With neuro symptoms, Fioricet as needed Neuro work-up negative acute CVA ruled out Follow outpatient neurologist for further evaluation and management obesity; BMI 30.7 Advised diet modification exercise as tolerated and weight reduction --DVT prophylaxi Heparin 5000 units subcu every 12 hours for DVT prophylaxis. Pepcid 20 mg IV every 12 hours for GI prophylaxis. Patient is a full code Extensive neuro work-up is is negative Acute CVA ruled out PT/OT no discharge needs Prolonged care inpatient; 35 minutes -- Advance care planning Current Visit: Yes Status: Acute Plan to address problem: Disease education conducted, care plan discussed, diagnoses discussed, prognosis discussed, patient is full code. Patient family acknowledged understanding and agreement with care plan, +30 minutes. -- Preventative health care Current Visit: Yes Status: Acute Plan to address problem: Patient family counseled regarding home safety preparation, supportive care, and possible need for retirement facility placement. Patient to follow-up with primary care physician for all age and risk factor appropriate screening test. +30 minutes. History Interval history: I have seen and examined the patient at the bedside Patient's chart and medications reviewed No new events reported by nursing Vital signs noted CVA work-up is in progress Hospitalist Physical - Constitutional Vitals: Temp Pulse Resp BP Pulse Ox 98.7 F 68 16 111/61 100 11/21/21 21:14 11/21/21 21:14 11/21/21 21:14 11/21/21 21:14 11/21/21 21:14 General appearance: Present: no acute distress, well-nourished - EENT Eyes: Present: PERRL, EOM intact ENT: other (Left facial weakness) - Neck Neck: Present: supple, normal ROM - Respiratory Respiratory effort: normal, labored Respiratory: bilateral: diminished, negative: rales, rhonchi, wheezing - Cardiovascular Rhythm: regular Heart Sounds: Present: S1 & S2 - Extremities Extremities: no ischemia, No edema - Abdominal General gastrointestinal: soft, non-tender, non-distended, normal bowel sounds - Integumentary Integumentary: Present: clear, warm - Psychiatric Psychiatric: appropriate mood/affect, cooperative - Neurologic Neurologic: CNII-XII intact, moves all extremities (Left facial weakness) HEART Score - HEART Score Troponin: Troponin T < 0.010 ng/mL (0.00-0.029) 11/20/21 20:51 Results - Labs CBC & Chem 7: 11/22/21 04:16 11/22/21 04:16 Labs: Laboratory Last Values WBC 8.1 K/mm3 (4.5-11.0) 11/20/21 20:48 RBC 4.44 M/mm3 (3.65-5.03) 11/20/21 20:48 Hgb 7.4 gm/dl (10.1-14.3) L 11/20/21 20:48 Hct 25.6 % (30.3-42.9) L 11/20/21 20:48 MCV 58 fl (79-97) L 11/20/21 20:48 MCH 17 pg (28-32) L 11/20/21 20:48 MCHC 29 % (30-34) L 11/20/21 20:48 RDW 19.6 % (13.2-15.2) H 11/20/21 20:48 Plt Count 431 K/mm3 (140-440) 11/20/21 20:48 Lymph % (Auto) 38.9 % (13.4-35.0) H 11/20/21 20:48 [place] % (Auto) 5.1 % (0.0-7.3) 11/20/21 20:48 Eos % (Auto) 3.8 % (0.0-4.3) 11/20/21 20:48 Baso % (Auto) 0.5 % (0.0-1.8) 11/20/21 20:48 Lymph # (Auto) 3.2 K/mm3 (1.2-5.4) 11/20/21 20:48 [place] # (Auto) 0.4 K/mm3 (0.0-0.8) 11/20/21 20:48 Eos # (Auto) 0.3 K/mm3 (0.0-0.4) 11/20/21 20:48 Baso # (Auto) 0.0 K/mm3 (0.0-0.1) 11/20/21 20:48 Seg Neutrophils % 51.7 % (40.0-70.0) 11/20/21 20:48 Seg Neutrophils # 4.2 K/mm3 (1.8-7.7) 11/20/21 20:48 PT 13.8 Sec. (12.2-14.9) 11/20/21 20:48 INR 0.96 (0.87-1.13) 11/20/21 20:48 APTT 30.8 Sec. (24.2-36.6) 11/20/21 20:48 Thrombin Time 15.7 Sec. (15.1-19.6) 11/20/21 20:48 Sodium 138 mmol/L (137-145) 11/20/21 23:49 Potassium 3.5 mmol/L (3.6-5.0) L 11/20/21 23:49 Chloride 103.0 mmol/L (98-107) 11/20/21 23:49 Carbon Dioxide 22 mmol/L (22-30) 11/20/21 23:49 Anion Gap 17 mmol/L 11/20/21 23:49 BUN 8 mg/dL (7-17) 11/20/21 23:49 Creatinine 0.3 mg/dL (0.6-1.2) L 11/20/21 23:49 Estimated GFR > 60 ml/min 11/20/21 23:49 BUN/Creatinine Ratio 27 % 11/20/21 23:49 Glucose 97 mg/dL (65-100) 11/20/21 23:49 POC Glucose 109 mg/dL (70-105) H 11/20/21 21:44 Calcium 8.6 mg/dL (8.4-10.2) 11/20/21 23:49 Total Creatine Kinase 72 units/L (30-135) 11/20/21 20:51 CK-MB (CK-2) < 1.0 ng/mL (0.0-4.0) 11/20/21 20:51 CK-MB (CK-2) Rel Index 1.3 (0-4) 11/20/21 20:51 Troponin T < 0.010 ng/mL (0.00-0.029) 11/20/21 20:51 HCG, Quant < 2 mIU/mL (0-4) 11/20/21 20:48 Urine Color Yellow (Yellow) 11/21/21 04:19 Urine Turbidity Clear (Clear) 11/21/21 04:19 Urine pH 6.0 (5.0-7.0) 11/21/21 04:19 Ur Specific [place] 1.056 (1.003-1.030) H 11/21/21 04:19 Urine Protein <15 mg/dl mg/dL (Negative) 11/21/21 04:19 Urine Glucose (UA) Neg mg/dL (Negative) 11/21/21 04:19 Urine Ketones Neg mg/dL (Negative) 11/21/21 04:19 Urine Blood Mod (Negative) 11/21/21 04:19 Urine Nitrite Neg (Negative) 11/21/21 04:19 Urine Bilirubin Neg (Negative) 11/21/21 04:19 Urine Urobilinogen < 2.0 mg/dL (<2.0) 11/21/21 04:19 Ur Leukocyte Esterase Sm (Negative) 11/21/21 04:19 Urine WBC (Auto) 20.0 /HPF (0.0-6.0) H 11/21/21 04:19 Urine RBC (Auto) 108.0 /HPF (0.0-6.0) 11/21/21 04:19 U Epithel Cells (Auto) 2.0 /HPF (0-13.0) 11/21/21 04:19 Urine Mucus 3+ /HPF 11/21/21 04:19 Urine Opiates Screen Presumptive negative 11/21/21 04:19 Urine Methadone Screen Presumptive negative 11/21/21 04:19 Ur Barbiturates Screen Presumptive negative 11/21/21 04:19 Ur Phencyclidine Scrn Presumptive negative 11/21/21 04:19 Ur Amphetamines Screen Presumptive negative 11/21/21 04:19 U Benzodiazepines Scrn Presumptive negative 11/21/21 04:19 Urine Cocaine Screen Presumptive negative 11/21/21 04:19 U Marijuana (THC) Screen Presumptive negative 11/21/21 04:19 Drugs of Abuse Note Disclamer 11/21/21 04:19 Fry/IV: Voiding Method Toilet Active Medications - Current Medications Current Medications: Generic Name Dose Route Start Last Admin Trade Name Freq PRN Reason Stop Dose Admin Acetaminophen 650 mg 11/21/21 00:58 11/21/21 21:23 Acetaminophen 325 Mg Tab PO 650 mg Q4H PRN Administration Pain MILD(1-3)/Fever >100.5/CHARLES Albuterol 2.5 mg 11/21/21 00:58 Albuterol 2.5 Mg/3 Ml Nebu IH Q3HRT PRN Shortness Of Breath Aspirin 81 mg 11/21/21 10:00 11/21/21 13:36 Aspirin 81 Mg Tab Chew PO 81 mg QDAY MELANI Administration Atorvastatin Calcium 40 mg 11/21/21 22:00 11/21/21 21:19 Atorvastatin 40 Mg Tab PO 40 mg QHS MELANI Administration Famotidine 20 mg 11/21/21 10:00 11/21/21 21:19 Famotidine 20 Mg/2 Ml Inj IV 20 mg BID MELANI Administration Heparin Sodium (Porcine) 5,000 unit 11/21/21 10:00 11/21/21 21:19 Heparin 5,000 Unit/1 Ml Vial SUB-Q 5,000 unit Q12HR MELANI Administration Dextrose/Sodium Chloride 1,000 mls @ 100 mls/hr 11/21/21 01:00 11/21/21 13:35 D5ns IV 100 mls/hr DIRECT MELANI Administration Labetalol HCl 10 mg 11/21/21 00:58 Labetalol 20 Mg/4 Ml Inj IV Q5MIN PRN to maintain SBP < 180 Morphine Sulfate 2 mg 11/21/21 00:58 Morphine 2 Mg/1 Ml Inj IV Q4H PRN Pain, Moderate (4-6) Morphine Sulfate 4 mg 11/21/21 00:58 Morphine 4 Mg/1 Ml Inj IV Q4H PRN Pain , Severe (7-10) Multivitamins/Iron/Calcium 1 each 11/21/21 10:00 11/21/21 13:53 [id number] Fumarate-Folic Acid Vit Tab PO 1 each DAILY MELANI Administration Ondansetron HCl 4 mg 11/21/21 00:58 Ondansetron 4 Mg/2 Ml Inj IV Q8H PRN Nausea And Vomiting Sodium Chloride 10 ml 11/21/21 10:00 11/21/21 21:19 Sodium Chloride 0.9% 10 Ml Flush Syringe IV 10 ml BID MELANI Administration Sodium Chloride 10 ml 11/21/21 00:58 Sodium Chloride 0.9% 10 Ml Flush Syringe IV PRN PRN LINE FLUSH
[2021-11-22] MEDS: D5W/0.9% NACL 1,000 ML IV SCH (00:15)
[2021-11-22 04:24] VITALS: BP 100/62
[2021-11-22 05:24] LABS: Basophils % (Auto) 0.5 % (0.0-1.8); Eosinophils # (Auto) 0.3 K/mm3 (0.0-0.4); Hematocrit 22.7 % (30.3-42.9); Hemoglobin 6.7 gm/dl (10.1-14.3); Lymphocytes # (Auto) 2.2 K/mm3 (1.2-5.4); Lymphocytes % (Auto) 38.1 % (13.4-35.0); Mean Corpuscular HGB Conc 29 % (30-34); Monocytes # (Auto) 0.5 K/mm3 (0.0-0.8); Monocytes % (Auto) 7.9 % (0.0-7.3); Platelet Count 368 K/mm3 (140-440); Red Blood Count 3.91 M/mm3 (3.65-5.03); Red Cell Distribution Width 19.1 % (13.2-15.2)
[2021-11-22 05:25] LABS: Mean Corpuscular Volume 58 fl (79-97)
[2021-11-22 05:45] LABS: Blood Urea Nitrogen 8 mg/dL (7-17); Calcium 8.1 mg/dL (8.4-10.2); Chol/HDL Ratio 3.81 %; HDL Cholesterol 32 mg/dL (40-59); Hemolysis Index 3; LDL Cholesterol,Direct 74 mg/dL (50-130)
[2021-11-22 06:07] LABS: BUN/Creatinine Ratio 27
--- NOTE | 2021-11-22 09:54 | Discharge Summary ---
Providers - Providers Date of Admission: 11/21/21 00:58 Date of discharge: 11/22/21 Attending physician: ADDIE SAHA 11/21/21 00:58 Consult to Physician [CONS] Routine Comment: Consulting Provider: MARIA C MCKINNEY Physician Instructions: Reason For Exam: cva Occupational Therapy Evaluate and Treat [CONS] Routine Comment: Reason For Exam: Neuro deficits Physical Therapy Evaluation and Treat [CONS] Routine Comment: Reason For Exam: Neuro deficits Primary care physician: [employer] Hospitalization Condition: Stable Pertinent studies: CT head CTA head CTA neck MRI brain Echocardiogram; LVEF 45 to 50% no evidence of PFO which is Hospital course: MRI brain no acute focal parenchymal lesion in the brain MRI brain; prominence of vessels seen on recent CTA along the calvarium are not appreciated supposed to I did not get VTE prophylaxis?: Chemical Plan of care discussed with patient/family: Yes - Patient Problems --CVA (cerebral vascular accident) Neuro work-up negative Acute CVA ruled out -- Facial droop probably due to migraine headaches neurological symptoms Aspirin 81 mg p.o. daily. Neurology evaluated the patient Recommend Fioricet and follow-up with neurology outpatient --Migraine headaches; With neuro symptoms, Fioricet as needed Neuro work-up negative acute CVA ruled out Follow outpatient neurologist for further evaluation and management obesity; BMI 30.7 Advised diet modification exercise as tolerated and weight reduction --Anemia-; Patient has monthly periods --DVT prophylaxi Heparin 5000 units subcu every 12 hours for DVT prophylaxis. Pepcid 20 mg IV every 12 hours for GI prophylaxis. Patient is a full code Extensive neuro work-up is is negative Acute CVA ruled out PT/OT no discharge needs Prolonged care inpatient; 35 minutes -- Advance care planning Disease education conducted, care plan discussed, diagnoses discussed, prognosis discussed, patient is full code. Patient family acknowledged understanding and agreement with care plan, +30 minutes. -- Preventative health care Patient family counseled regarding home safety preparation, supportive care, and possible need for snf facility placement. Patient to follow-up with primary care physician for all age and risk factor appropriate screening test. +30 minutes. Disposition: 01 HOME / SELF CARE / HOMELESS Final Discharge Diagnosis (Prints w/discharge instructions): Possible CVA acute CVA ruled out. Facial droop probably due to migraine headache. Migraine headaches. Obesity BMI 30.7 Exam - Constitutional Vitals: Temp Pulse Resp BP Pulse Ox 98.2 F 68 18 100/62 99 11/22/21 04:11 11/22/21 05:14 11/22/21 04:11 11/22/21 04:11 11/22/21 04:11 Plan Activity: advance as tolerated Diet: other (Cardiac diet) Additional Instructions: If you have worsening symptoms contact MD or go to the nearest emergency room as needed. Advised to follow with private MD/[place] [facility] in 1 week. Advised to see private neurologist in 1 week. 4 days of work excuse from 11/23/2021-11/26/2021, check with primary care physician if you need additional work excuse this Follow up with: PRIMARY MD ANGELA [Primary Care Provider] - 3-5 Days IVANNA CAMPBELL MD [Staff Physician] - 7 Days Prescriptions: Aspirin [Aspirin BABY CHEW TAB] 81 mg PO QDAY #30 tab.chew Butalb/Acetamin/Caff 50-325-40 [Fioricet 50-325-40] 1 each PO Q4H PRN #30 PRN Reason: Headache Famotidine [Pepcid] 20 mg PO BID #20 tablet
[2021-11-22] MEDS ORDERED: FAMOTIDINE 20 MG TAB PO SCH (12:00)
[2021-11-22] MEDS: ACETAMINOPHEN 325 MG TAB PO PRN (13:13)
[2021-11-22] MEDS: HEPARIN 5,000 UNIT/1 ML VIAL SUB-Q SCH (13:14)
[2021-11-22] MEDS: ASPIRIN 81 MG TAB CHEW PO SCH (13:14)
[2021-11-22 16:11] LABS: Hemoglobin 7.6 gm/dl (10.1-14.3)
[2021-11-22] MEDS: PRENATAL VIT27-FE FUMARATE-FOLIC ACID VIT TAB PO SCH (17:53)
== END 2021-11-22 23:55 | disposition home or self-care (01) ==
LOC: ED 19:43 → 4A 11-21 00:58 → INTOOBSV 11-21 00:58
PROVIDERS: ADMIT Hospitalist; ATTEND Internal Medicine
DX: I63.9 Cerebral infarction, unspecified (principal); R29.810 Facial weakness; E66.9 Obesity, unspecified; E11.9 Type 2 diabetes mellitus without complications; G43.909 Migraine, unspecified, not intractable, without status migrainosus; R29.702 NIHSS score 2; Z79.82 Long term (current) use of aspirin; Z79.899 Other long term (current) drug therapy; Z98.890 Other specified postprocedural states; Z68.30 Body mass index [BMI] 30.0-30.9, adult
CPT/HCPCS: 36415; 70450; 70496; 70498; 70544; 70551; 80048; 80061; 80307; 81001; 82550; 82553; 82962; 84484; 84702; 85014; 85018; 85025; 85610; 85670; 85730; 87086; 93005; 96361; 96372; 96374; 96376; 97162; 97166; 99285; C8929; G0378; J1644; J3490; J7042; Q9967; 93306